=== PATIENT | male | born 1970 | race African-American/Black ===

== ENCOUNTER 2016-06-15 01:00 | Emergency (ER) | payer SELFPAY ==
[~2016-06-15] VITALS: Ht 180.3 cm; Wt 91.5 kg
[2016-06-15 01:05] VITALS: Ht 180.3 cm; Wt 91.5 kg
[2016-06-15] MEDS ORDERED: ACETAMINOPHEN 325 MG TAB PO ONE (02:00)
--- NOTE | 2016-06-15 02:25 | RADRPT ---
PROCEDURE: XR Chest. CLINICAL INDICATION: Cough. Fever.. TECHNIQUE: Single frontal chest x-ray. COMPARISON: None. FINDINGS: The cardiomediastinal silhouette is unremarkable. The lungs are clear. No focal infiltrate is seen. There is no pleural effusion. There is no pneumothorax. The osseous structures are unremarkable. IMPRESSION: 1. No active disease. RPTAT: HMVK .Kelotn Ordaz MD, MD Date Time Electronically viewed and signed by .Kelton Ordaz MD, on 06/15/2016 02:25 .K/
--- NOTE | 2016-06-15 02:31 | RADRPT ---
PROCEDURE: Right knee. CLINICAL INDICATION: Pain. TECHNIQUE: Three views including AP, lateral and oblique views of the right knee were obtained. The images reviewed on a PACS workstation. COMPARISON: None. FINDINGS: There is no fracture, dislocation or bone destruction. There is no significant joint space narrowin g or effusion. Bone mineralization is within normal limits. There is no radiopaque foreign body. There is a small calcific protuberance along the medial distal femoral condyle. IMPRESSION: No evidence of fracture. Calcific tendonitis versus small exostosis. .Nicolás Painter MD, MD Date Time Electronically viewed and signed by .Nicolás Painter MD, MD on 06/15/2016 02:31 .T/
[2016-06-15] MEDS ORDERED: AZIT250T94 PO (02:54)
[2016-06-15] MEDS ORDERED: BENZ100C70 PO (02:54)
[2016-06-15] MEDS ORDERED: IBUP800T25 PO (02:54)
--- NOTE | 2016-06-15 03:03 | ERD ---
ER Documentation Chief Complaint Date/Time DATE: 06/15/16 TIME: 02:58 Chief Complaint rt knee pain and swelling,no deformity noted HPI 46-year-old male with no significant past medical history presents to the ED complaining of a right knee injury that occurred at 12 AM, 3 hours ago. States that he was playing basketball and was teaching his friend a defensive move and accidentally hyperextended his leg and might have twisted his right knee. States that he also feels tactile fevers but has been having a cough for the last 3 weeks. Reports that he took ibuprofen at 12 AM with relief of his symptoms. States that it is a sharp pain and rates it a 7 out of 10. States that there is bruising behind his knee. Denies any chest pain, shortness of breath, abdominal pain, nausea, vomiting, loss of sensation, loss of range of motion, weakness, numbness or tingling. ROS All systems reviewed and are negative except as per history of present illness. Medications Home Meds Active Scripts Azithromycin* (Zithromax*) 250 Mg Tablet, 250 MG PO .ZPACK DIRECTED, #6 TAB TAKE 500 MG (2 TABS) THE FIRST DAY THEN 250 MG (1 TAB) DAYS 2-5 Prov:RAFAEL VAZQUEZ PA-C 06/15/16 Benzonatate* (Tessalon Perle*) 100 Mg Capsule, 100 MG PO Q8H Y for COUGH, #20 CAP Prov:RAFAEL VAZQUEZ PA-C 06/15/16 Ibuprofen* (Motrin*) 800 Mg Tab, 800 MG PO Q6, #30 TAB take with food Prov:RAFAEL VAZQUEZ PA-C 06/15/16 PMhx/Soc Medical and Surgical Hx: pt denies Medical Hx, pt denies Surgical Hx Hx Alcohol Use: Yes (occassional) Hx Substance Use: No Hx Tobacco Use: Yes Smoking Status: Current some day smoker Physical Exam Vitals Vital Signs Date Time Temp Pulse Resp B/P Pulse Ox O2 Delivery O2 Flow Rate FiO2 06/15/16 01:05 100.3 102 18 138/94 100 Physical Exam Const: [id number], well-nourished. In no acute distress. Head: Atraumatic, normocephalic Eyes: Normal Conjunctiva without injection ENT: Normal external ear, nose and mouth. Neck: Full range of motion. No meningismus. Resp: Clear to auscultation bilaterally. No wheezing, rhonchi, rales, or crackles. No accessory muscle use. No retractions. Cardio: Regular rate and rhythm, no murmurs Skin: No petechiae or rashes Back: No midline tenderness. No CVA tenderness. Ext: No cyanosis, or edema. Cap refill less than 2 seconds. Distal pulses intact bilaterally. Tenderness to palpation of the popliteal fossa with ecchymosis noted, medial and lateral aspect of patient's right knee. Patient was able to extend and flex right knee. Neur: Awake and alert. Normal gait and coordination. Muscle strength 5/5. Sensation intact bilaterally. Psych: Normal Mood and Affect Results 24 hrs Current Medications Medications (Trade) Dose Ordered Sig/Aniceto Route PRN Reason Start Time Stop Time Status Last Admin Dose Admin Acetaminophen (Tylenol Tab) 650 mg ONCE ONCE PO 06/15/16 02:00 06/15/16 02:01 DC 06/15/16 01:44 Procedures/MDM This is a 46-year-old male with no significant past medical history presents the ED complaining of right knee pain. Patient currently has a low-grade fever of 100.3 and states that it is likely associated with his cough. A chest x-ray was ordered to further evaluate patient as well as a right knee x-ray. Tylenol was given to patient here in the ED PROCEDURE: XR Chest. CLINICAL INDICATION: Cough. Fever.. TECHNIQUE: Single frontal chest x-ray. COMPARISON: None. FINDINGS: The cardiomediastinal silhouette is unremarkable. The lungs are clear. No focal infiltrate is seen. There is no pleural effusion. There is no pneumothorax. The osseous structures are unremarkable. IMPRESSION: 1. No active disease. PROCEDURE: Right knee. CLINICAL INDICATION: Pain. TECHNIQUE: Three views including AP, lateral and oblique views of the right knee were obtained. The images reviewed on a PACS workstation. COMPARISON: None. FINDINGS: There is no fracture, dislocation or bone destruction. There is no significant joint space narrowing or effusion. Bone mineralization is within normal limits. There is no radiopaque foreign body. There is a small calcific protuberance along the medial distal femoral condyle. IMPRESSION: No evidence of fracture. Calcific tendonitis versus small exostosis. Patient is placed in a right knee immobilizer. Crutches were given to patient to help with ambulation. Splint Assessment: Neurovascularly intact pre and post splint placement with good fit. Patient's extremity symptoms have stabilized while they have been evaluated in the department and are appropriate for outpatient follow up. No evidence of fractures, dislocations, compartment syndrome, neurologic injury, vascular injury, open joint, open fracture, tendon laceration, septic arthritis, osteomyelitis, DVT, foreign body, or other emergent conditions. This patient presents to the ED with symptoms consistent with bronchitis. Patient is afebrile and has normal vital signs. Patient's physical exam include lungs which were clear to auscultation and a normal pulse oximetry. There is a low suspicion for pneumonia, pneumothorax, pulmonary embolism, epiglottitis, otitis media, otitis externa, viral/strep pharyngitis, sinusitis, peritonsillar abscess, mastoiditis, retropharyngeal abscess, meningitis, sepsis , acute abdomen or other emergent conditions. Fluids, rest, and symptomatic treatment are recommended for the management of patient's symptoms. Discharge medications: Tessalon Perles, Zithromax, ibuprofen Follow up with primary care physician in tomorrow for a referral to an orthopedic physician for further evaluation and treatment. Instructed patient to return to the ED sooner for any worsening symptoms. Patient's questions were answered. Patient understood and agreed with discharge plan. Patient discharged stable. Departure Diagnosis: Primary Impression: Knee injury Encounter type: initial encounter Laterality: right Qualified Code: S89.91XA - Knee injury, right, initial encounter Additional Impression: Bronchitis Condition: Stable Patient Instructions: Reducing Knee Pain and Swelling, Bronchitis, Antiobiotic Treatment (Adult), Knee Pain, Uncertain Cause Referrals: [facility] YOU HAVE RECEIVED A MEDICAL SCREENING EXAM AND THE RESULTS INDICATE THAT YOU DO NOT HAVE A CONDITION THAT REQUIRES URGENT TREATMENT IN THE EMERGENCY DEPARTMENT. FURTHER EVALUATION AND TREATMENT OF YOUR CONDITION CAN WAIT UNTIL YOU ARE SEEN IN YOUR DOCTORS OFFICE WITHIN THE NEXT 1-2 DAYS. IT IS YOUR RESPONSIBILITY TO MAKE AN APPOINTMENT FOR FOLOW-UP CARE. IF YOU HAVE A PRIMARY DOCTOR --you should call your primary doctor and schedule an appointment IF YOU DO NOT HAVE A PRIMARY DOCTOR YOU CAN CALL OUR PHYSICIAN REFERRAL HOTLINE AT IF YOU CAN NOT AFFORD TO SEE A PHYSICIAN YOU CAN CHOSE FROM THE FOLLOWING [facility] [address] [facility] [address] [facility] [address] [facility] [address] [facility] [address] [facility]. [facility] [address] [facility]. [facility] YOU HAVE RECEIVED A MEDICAL SCREENING EXAM AND THE RESULTS INDICATE THAT YOU DO NOT HAVE A CONDITION THAT REQUIRES URGENT TREATMENT IN THE EMERGENCY DEPARTMENT. FURTHER EVALUATION AND TREATMENT OF YOUR CONDITION CAN WAIT UNTIL YOU ARE SEEN IN YOUR DOCTORS OFFICE WITHIN THE NEXT 1-2 DAYS. IT IS YOUR RESPONSIBILITY TO MAKE AN APPOINTMENT FOR FOLOW-UP CARE. IF YOU HAVE A PRIMARY DOCTOR --you should call your primary doctor and schedule and appointment IF YOU DO NOT HAVE A PRIMARY DOCTOR YOU CAN CALL OUR PHYSICIAN REFERRAL HOTLINE AT . IF YOU CAN NOT AFFORD TO SEE A PHYSICIAN YOU CAN CHOSE FROM THE FOLLOWING [facility] IN[facility]: [facility] [address] [place] [address] [facility] [address] [place] [address] LOCATED WITHIN [facility] [address] [place] [address] [facility] 7 a.m.- 11 p.m. Every Day of the Week NO APPOINTMENT OR AUTHORIZATION NEEDED [facility] Hours: Mon-Fri 9:00 AM - 5:00 PM Additional Instructions: FOLLOW UP WITH YOUR PRIMARY CARE PHYSICIAN TOMORROW for a referral to orthopedic physician.Return to this facility if you are not improving as expected. RAFAEL VAZQUEZ PA-C Jun 15, 2016 03:03
[2016-06-15 03:15] VITALS: BP 129/84; PULSE 66; RESP 17; TEMP 99.7
== END 2016-06-15 03:16 | disposition home or self-care (01) ==
LOC: FTE 01:00
DX: S89.91XA Unspecified injury of right lower leg, initial encounter (principal); J20.9 Acute bronchitis, unspecified; F17.210 Nicotine dependence, cigarettes, uncomplicated; R50.9 Fever, unspecified; X50.9XXA Other and unspecified overexertion or strenuous movements or postures, initial encounter; Y92.9 Unspecified place or not applicable
CPT/HCPCS: 71010; 73562